=== PATIENT | female | born 1970 | race Caucasian/White ===

== ENCOUNTER 2020-08-28 09:51 | Outpatient (CLI) | payer OTHER ==
--- NOTE | 2020-08-28 14:06 | MRI ---
MRI OF THE LEFT KNEE PERFORMED WITHOUT CONTRAST ENHANCEMENT: 08/28/20 HISTORY: Left knee pain. Anterior as well as posterior cruciate ligaments are intact. Medial and lateral menisci are normal in shape and position. Medial and lateral collateral ligaments and iliotibial band regions are unremarkable. The patellar articular cartilage shows some edema change involving the lateral facet more along the i nferior margin. There is also some articular surface irregularity of the lateral facet with some grad e II chondromalacia change. There is some focal grade II chondromalacia change. Medial and lateral pa tellar retinaculum as well as quadriceps and patellar tendons are normal. IMPRESSION: 1. No evidence of meniscal or cruciate ligament injury. 2. Mild chondromalacia changes of the lateral facet of the patella. POS: [facility]
== END 2020-08-28 09:52 | disposition home or self-care (01) ==
LOC: TBSIIMAG 09:51
PROVIDERS: ATTEND Psychiatry & Neurology Neurology
DX: G58.9 Mononeuropathy, unspecified (principal); M22.42 Chondromalacia patellae, left knee

== ENCOUNTER 2023-02-10 10:57 | Outpatient (CLI) | payer BC | END 2023-02-10 10:58 | disposition home or self-care (01) | LOC: BICMAMMO 10:57 | PROVIDERS: ATTEND Nurse Practitioner Family | DX: Z12.31 Encounter for screening mammogram for malignant neoplasm of breast (principal) | CPT/HCPCS: 77063; 77067 ==